=== PATIENT | male | born 1970 | race Caucasian/White ===

== ENCOUNTER 2022-02-10 00:11 | Observation (INO) ==
[2022-02-10] MEDS ORDERED: *HR* OxyCODONE/APAP 5/325 TABLET PO ONE (00:36)
[2022-02-10] MEDS ORDERED: Morphine Sulfate 2 MG/ML SYRINGE IVP ONE (03:13)
[2022-02-10 04:12] LABS: Basophils # 0.1 K/mcL (0.0-0.2); Basophils % 0.4 %; Eosinophils % 0.2 %; Hematocrit 41.3 % (37.5-50.1); Hemoglobin 14.5 g/dL (12.9-16.9); Immature Granulocytes % 0.4 % (0-4); Lymphocytes # 3.7 K/mcL (0.6-4.6); Lymphocytes % 26.2 %; Mean Corpuscular HGB Conc 35.1 g/dL (31.6-35.5); Mean Corpuscular Hemoglobin 30.5 pg (28.0-33.3); Mean Corpuscular Volume 86.9 fL (83.0-100.0); Mean Platelet Volume 8.9 fL (9.4-12.4); Monocytes # 0.9 K/mcL (0.0-1.3); Monocytes % 6.4 %; Neutrophils # 9.4 K/mcL (1.6-8.9); Platelet Count 259 K/mcL (140-400); Red Blood Count 4.75 M/mcL (4.19-5.50); Red Cell Distribution Width 12.9 % (11.5-14.5); Segmented Neutrophils % 66.4 %; White Blood Count 14.2 K/mcL (4.3-11.1)
[2022-02-10 04:32] LABS: Calcium 9.1 mg/dL (8.6-10.3); Potassium 4.2 mEq/L (3.5-5.1)
[2022-02-10] MEDS ORDERED: *HR* LORazepam 2 MG/ML VIAL IVP PRN ×3 (04:42)
[2022-02-10] MEDS ORDERED: 0.9 % Sodium Chloride 1,000 ML IVC SCH (04:45)
[2022-02-10] MEDS ORDERED: Ondansetron 4 MG/2 ML VIAL IVP PRN (04:47)
[2022-02-10] MEDS ORDERED: Naloxone 0.4 MG/ML INJ IVP PRN (04:47)
[2022-02-10] MEDS: *HR* HYDROmorphone 2 MG TABLET PO PRN ×4 (06:02→20:40)
[2022-02-10] MEDS: *HR* HYDROcodone/Acet 5/325 mg TABLET PO PRN ×4 (06:33→22:41)
[2022-02-10] MEDS ORDERED: lisinopriL 5 MG TABLET PO SCH (09:00)
[2022-02-10] MEDS: Acetaminophen 325 MG TABLET PO PRN ×2 (09:40→15:30)
[2022-02-10 09:53] LABS: Amylase 36 Units/L (29-103); Lipase 30 Units/L (11-82)
[2022-02-10 10:15] LABS: Bilirubin,Urine Negative (Negative); Blood,Urine Trace (Negative); Clarity,Urine Clear (Clear); Color,Urine Light-Yellow (Yellow); Glucose,Urine (UA) Normal (Normal); Hyaline Casts,Urine Few per lpf (None Seen); Ketones,Urine Negative (Negative); Leukocyte Esterase,Urine Negative (Negative); Mucus,Urine Few per lpf (None-Few); Nitrite,Urine Negative (Negative); PH,Urine 5.5 pH Units (5.0-8.0); Protein,Urine Negative (Neg-Trace); RBC,Urine 0-3 per hpf (0-3); Specific Gravity,Urine 1.017 (1.010-1.025); Urobilinogen,Urine Normal (Normal); WBC,Urine 0-3 per hpf (0-3)
[2022-02-10] MEDS: lisinopriL 5 MG TABLET PO SCH (16:03)
[2022-02-10] MEDS ORDERED: Ketorolac 30 MG/ML VIAL IVP ONE (20:45)
[2022-02-11] MEDS: *HR* HYDROmorphone 2 MG TABLET PO PRN ×2 (03:30→11:11)
[2022-02-11 04:21] LABS: Hematocrit 41.3 % (37.5-50.1); Hemoglobin 14.2 g/dL (12.9-16.9); Mean Corpuscular HGB Conc 34.4 g/dL (31.6-35.5); Mean Corpuscular Hemoglobin 30.6 pg (28.0-33.3); Mean Platelet Volume 8.9 fL (9.4-12.4); Platelet Count 210 K/mcL (140-400); Red Blood Count 4.64 M/mcL (4.19-5.50); Red Cell Distribution Width 12.7 % (11.5-14.5); White Blood Count 8.4 K/mcL (4.3-11.1)
[2022-02-11 04:26] LABS: INR 1.1; Prothrombin Time 12.2 Seconds (9.4-12.1)
[2022-02-11 04:42] LABS: Calcium 8.9 mg/dL (8.6-10.3); Magnesium 1.9 mg/dL (1.6-2.6); Potassium 4.1 mEq/L (3.5-5.1)
[2022-02-11 04:43] LABS: Albumin 4.2 g/dL (3.5-5.7); Albumin/Globulin Ratio 1.6 (1.1-2.2); Bilirubin,Direct 0.1 mg/dL (0.0-0.2); Bilirubin,Indirect 0.9 mg/dL (0.0-1.0); Globulin 2.6 g/dL (2.4-3.5); Total Protein 6.8 g/dL (6.4-8.9)
[2022-02-11] MEDS ORDERED: Ibuprofen 200 MG TABLET PO ONE (06:04)
[2022-02-11 06:23] VITALS: PULSE 71
[2022-02-11] MEDS ORDERED: Ibuprofen 400 MG TABLET PO ONE (06:30)
[2022-02-11] MEDS: lisinopriL 5 MG TABLET PO SCH (08:46)
[2022-02-11] MEDS: *HR* HYDROcodone/Acet 5/325 mg TABLET PO PRN (08:46)
[2022-02-11 11:39] VITALS: BP 148/59; TEMP 98.7; O2SAT 95
[2022-02-11] MEDS: Acetaminophen 325 MG TABLET PO PRN (15:04)
[2022-02-11] MEDS ORDERED: Ketorolac 30 MG/ML VIAL IVP ONE (20:08)
== END 2022-02-11 15:20 | disposition home or self-care (01) ==
LOC: 4WAOSI 00:11 → EMEROOARM 00:11 → 4WAOSI 06:05
PROVIDERS: ADMIT Internal Medicine; ATTEND Internal Medicine